=== PATIENT | male | born 1995 | race Asian ===

== ENCOUNTER 2019-10-17 22:44 | Emergency (ER) | payer OTHER ==
--- NOTE | 2019-10-18 00:27 | ED ---
Throat Pain/Nasal Congestion - HPI Summary HPI Summary: 24-year-old male presents to the emergency department today with a chief complaint of his right ear being clogged one hour after taking a shower. he denies any pain with this or dizziness or any other symptoms. He admits to difficulty hearing out of his right ear. He states it is difficult to hear out of his right ear. He states he has had these issues in the past. He denies fever, chest pain, shortness of breath, pain with urination, dizziness, ear pain. - History of Current Complaint Chief Complaint: EDEarPain Time Seen by Provider: 10/18/19 00:18 Hx Obtained From: Patient Onset/Duration: Sudden Onset Severity: Mild Associated Signs And Symptoms: Negative: FB Sensation - Allergies/Home Medications Allergies/Adverse Reactions: Allergies Allergy/AdvReac Type Severity Reaction Status Date / Time No Known Allergies Allergy Verified 10/17/19 22:54 PMH/Surg Hx/FS Hx/Imm Hx Infectious Disease History: No Infectious Disease History: Denies: Traveled Outside the [place] in Last 30 Days Review of Systems Constitutional: Negative Cardiovascular: Negative Respiratory: Negative Gastrointestinal: Negative Skin: Negative Psychological: Normal All Other Systems Reviewed And Are Negative: Yes Physical Exam Triage Information Reviewed: Yes Vital Signs On Initial Exam: Initial Vitals Temp Pulse Resp BP Pulse Ox 98.7 F 76 15 143/78 96 10/17/19 22:53 10/17/19 22:53 10/17/19 22:53 10/17/19 22:53 10/17/19 22:53 Vital Signs Reviewed: Yes Appearance: Positive: Well-Appearing, No Pain Distress Skin: Positive: Warm, Skin Color Reflects Adequate Perfusion Eyes: Positive: EOMI, LUIS ENT: Positive: TMs normal, Other - Significant cerumen impaction is appreciated on the right side. Patient has decreased hearing on the right side.. Negative : TM bulging, TM dull, TM red Respiratory/Lung Sounds: Positive: Clear to Auscultation, Breath Sounds Present Cardiovascular: Positive: RRR, S1, S2 Neurological: Positive: Sensory/Motor Intact, Alert, Oriented to Person Place, Time Psychiatric: Positive: Normal AVPU Assessment: Alert Procedures - Sedation Patient Received Moderate/Deep Sedation with Procedure: No Diagnostics - Vital Signs Vital Signs Temp Pulse Resp BP Pulse Ox 10/17/19 22:53 98.7 F 76 15 143/78 96 - Laboratory Lab Statement: Any lab studies that have been ordered have been reviewed, and results considered in the medical decision making process. EENT Course/Dx - Course Course Of Treatment: Patient was evaluated in the emergency department for cerumen impaction in his right ear. Patient was seen and examined. Irrigation was used to flush the cerumen impaction out of his right ear. After this procedure he states his symptoms disappeared. There is no evidence of TM perforation or trauma following this procedure. He is told to follow-up with his Health clinic for further evaluation due to 3 days. He agrees with this plan. - Differential Diagnoses Differential Diagnoses: Other - Cerumen impaction, tympanic membrane rupture - Diagnoses Provider Diagnoses: Impacted cerumen of right ear Discharge ED - Sign-Out/Discharge Documenting (check all that apply): Patient Departure - Discharge Plan Condition: Improved Disposition: HOME Patient Education Materials: Cerumen Impaction (ED) Referrals: No Primary Care Phys,NOPCP [Primary Care Provider] - Additional Instructions: You were seen in the emergency department today due to a cerumen impaction in your right ear. your Ear was flushed and the earwax was removed. Please follow -up with your clinic in next 2-3 days for further evaluation and management of this problem. If you develop any new or worsening symptoms please return to emergency department immediately. - Billing Disposition and Condition Condition: IMPROVED Disposition: Home
[2019-10-20 00:54] VITALS: BP 00/00
== END 2019-10-18 01:00 | disposition home or self-care (01) ==
LOC: ED 22:44
DX: H61.21 Impacted cerumen, right ear (principal); H92.01 Otalgia, right ear
CPT/HCPCS: 99281